=== PATIENT | female | born 1995 | race Two or more races ===

== ENCOUNTER 2017-10-08 11:52 | Emergency (ER) | payer SELFPAY ==
[~2017-10-08] VITALS: Ht 167.6 cm; Wt 55.8 kg
[2017-10-08] MEDS ORDERED: ONDANSETRON ODT 4 MG TAB PO ONE ×2 (12:15→12:30)
[2017-10-08 13:11] LABS: Basophils # (auto) 0.1 uL; Basophils % (auto) 0.4 % (0.0-2.0); Eosinophils # (auto) 0.2 uL; Eosinophils % (auto) 1.5 % (0.0-7.0); Hematocrit 43.1 % (36.0-46.0); Hemoglobin 14.4 g/dL (12.2-16.2); Lymphocytes # (auto) 1.4 uL; Lymphocytes % (auto) 9.5 % (10.0-50.0); Mean Corpuscular Hemoglobin 29.6 pg (28.0-32.0); Mean Corpuscular Hgb Conc. 33.3 g/dL (32.0-36.0); Mean Corpuscular Volume 88.8 fL (80.0-100.0); Monocytes # (auto) 0.5 uL; Monocytes % (auto) 3.6 % (0.0-12.0); Neutrophils # (auto) 12.5 uL; Platelet Count (auto) 262 10^3/uL (140-450); Red Blood Cells 4.86 10^6/uL (4.0-5.20); Red Cell Distribution Width 13.7 % (11.8-14.3); White Blood Cell 14.8 10^3/uL (4.4-10.8)
[2017-10-08 13:36] LABS: Alanine Aminotransferase 26 U/L (13-56); Albumin 3.8 g/dL (3.4-5.0); Alkaline Phosphatase 59 U/L (45-117); Amylase 65 U/L (25-115); Anion Gap 7 (5-15); Aspartate Aminotransferase 8 U/L (15-37); BUN/Creatinine Ratio 18.7; Bilirubin, Total 0.4 mg/dL (0.2-1.0); Blood Urea Nitrogen 14 mg/dL (7-18); Calcium 9.2 mg/dL (8.5-10.1); Carbon Dioxide 24 mmol/L (21-32); Chloride 109 mmol/L (98-107); GFR African American 125 mL/min; GFR Non-African American 104 mL/min; Glucose 90 mg/dL (74-106); Lipase 101 U/L (73-393); Potassium 4.3 mmol/L (3.5-5.1); Sodium 140 mmol/L (136-145); Total Protein 7.6 g/dL (6.4-8.2)
[2017-10-08 16:56] LABS: Urine Bacteria NONE SEEN /hpf (None Seen); Urine Blood 2+ /uL (Negative); Urine Mucus FEW (None Seen); Urine Specific Gravity 1.033 (1.001-1.035); Urine WBC 3 /hpf (0 - 5)
[2017-10-08] MEDS ORDERED: KETOROLAC TROMETH 30 MG/ML 1ML VIAL IV ONE (17:30)
[2017-10-08] MEDS ORDERED: PROMETHAZINE HCL 25 MG/ML 1ML IV PRN (17:30)
[2017-10-08 20:24] VITALS: BP 102/59
== END 2017-10-08 20:30 | disposition home or self-care (01) ==
LOC: EDBD 11:52 → ER 11:52
DX: R10.13 Epigastric pain (principal)
CPT/HCPCS: 36415; 74176; 80053; 81001; 82150; 83690; 84484; 85025; 93005; 96374; 96375; 99285; J1885; J2550; Q0162

== ENCOUNTER 2024-05-11 01:48 | Inpatient (IN) | payer MEDICAID ==
[~2024-05-11] VITALS: Ht 152.4 cm; Wt 67.2 kg
--- NOTE | 2024-05-11 02:12 | ED.PDOC ---
GI ASSESSMENT HPI Comments 28-year-old female who came to ER for abdominal pain. Patient states pain for the past 4 days. Abdominal pain described as epigastric, sharp, cramping, constant, nonradiating, associated with bouts of nausea, vomiting, and dry heaving. Unable to tolerate any oral intake. Denies any history of abdominal surgeries. Denies any possibility of . Chief Complaint: Abdominal pain Time Seen by MD: 02:11 Reviewed Notes: Nurses Notes Allergies: Coded Allergies: NO KNOWN ALLERGIES (Unverified , 10/08/17) Home Meds Active Scripts Loperamide Hcl (Imodium) 2 Mg Cp, 2 MG PO TID PRN for 7 Days, #20 CAP Prov:MAHSA CAMPBELL MD 05/11/24 Famotidine (PEPCID TABLET) 20 Mg Tb, 1 TAB PO BID PRN for 10 Days, #20 TAB 5 Refills Prov:MAHSA CAMPBELL MD 05/11/24 Ondansetron Odt 4MG Tab (ZOFRAN PO) 4 Mg Tb, 4 MG PO Q4HPRN PRN for 7 Days, #35 TAB ODT TAB-DISSOLVE IN MOUTH, THEN SWALLOW Prov:MAHSA CAMPBELL MD 05/11/24 Information Source: Patient Mode of Arrival: Ambulatory Timing: Days Duration: Intermittent Prehospital treatment: None Quality: Cramping, Sharp Vomitus: Watery Stool: Normal Severity: Moderate Recent: None Recent Hx of: None Pain Location: Epigastric Modifying Factors: Nothing Associated sign and symptoms: Nausea, Vomiting, Abdominal Pain Past Medical History PAST MEDICAL HISTORY: Kidney Stones Surgical History: Denies all surgeries RAD TECH History: No Pertinent RAD TECH History Family History Family History: Reviewed,noncontributory to illness Social History Smoker: Non-Smoker Alcohol: Denies ETOH Use Drugs: Denies Drug Use Lives In: Home Constitutional: denies: chills, diaphoresis, fatigue, fever, malaise, sweats, weakness, others EENTM: denies: blurred vision, double vision, ear bleeding, ear discharge, ear drainage, ear pain, ear ringing, eye pain, eye redness, hearing loss, mouth pain, mouth swelling, nasal discharge, nose bleeding, nose congestion, nose pain, photophobia, tearing, throat pain, throat swelling, voice changes, others Respiratory: denies: cough, hemoptysis, orthopnea, SOB at rest, shortness of breath, SOB with excertion, stridor, wheezing, others Cardiovascular: denies: chest pain, dizzy spells, diaphoresis, Dyspnea on exertion, edema, irregular heart beat, left arm pain, lightheadedness, pal pitations, PND, syncope, others Gastrointestinal: reports: abdominal pain, nausea, vomiting; denies: abdomen distended, blood streaked bowels, constipated, diarrhea, dysphagia, difficulty swallowing, hematemesis, melena, poor appetite, poor fluid intake, rectal bleeding, rectal pain, others Genitourinary: denies: abnormal vagina bleeding, burning, dyspareunia, dysuria, flank pain, frequency, hematuria, incontinence, pain, , vagina discharge, urgency, others Neurological: denies: dizziness, fainting, headache, left sided numbness, left sided weakness, numbness, paresthesia, pre-existing deficit, right sided numbness, right sided weakness, seizure, speech problems, tingling, tremors, weakness, others Musculoskeletal: denies: back pain, gout, joint pain, joint swelling, muscle pain, muscle stiffness, neck pain, others Integumetry: denies: bruises, change in color, change in hair/nails, dryness, laceration, lesions, lumps, rash, wounds, others Allergic/Immunocompromised: denies: Difficulty Healing, Frequent Infections, Hives, Itching, others Hematologic/Lymphatic: denies: anemia, blood clots, easy bleeding, easy bruising, swollen glands, others Endocrine: denies: excessive hunger, excessive sweating, excessive thirst, excessive urination, flushing, intolerance to cold, intolerance to heat, unexplained weight gain, unexplained weight loss, others Psychiatric: denies: anxiety, bipolar disorder, depression, hopeless, panic disorder, schizophrenia, sleepless, suicidal, others Physical Exam General Appearance: No Apparent Distress, Normal HEENT: Normal ENT Inspection, Pharynx Normal, TMs Normal Neck: Full Range of Motion, Non-Tender, Normal, Normal Inspection Respiratory: Chest Non-Tender, Lungs Clear, No Accessory Muscle Use, No Respiratory Distress, Normal Breath Sounds Cardiovascular: No Edema, No JVD, No Murmur, No Gallop, Normal Peripheral Pulses, Regular Rate/Rhythm Breast Exam: Deferred Gastrointestinal: No Organomegaly, Non Tender, No Pulsatile Mass, Normal Bowel Sounds, Soft Genitalia: Deferred Pelvic: Deferred Rectal: Deferred Extremities: No calf tenderness, Normal capillary refill, Normal inspection, Normal range of motion, Non-tender, No pedal edema Musculoskeletal : Apperance: Normal Neurologic: Alert, 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 Was a procedure done?: No GI differential Dx Differential Diagnosis: Cholecystitis, Diverticular disease, Gastritis/PUD, Gastroenteritis, Pancreatitis, UTI, Urolithiasis, Dehydration, Kidney Stone X-Ray, Labs, Meds, VS Vital Signs Date Time Temp Pulse Resp B/P (MAP) Pulse Ox O2 Delivery O2 Flow Rate FiO2 05/11/24 03:26 84 19 136/81 05/11/24 03:16 84 19 99 Room Air 05/11/24 03:16 84 19 136/81 (99) 99 05/11/24 02:00 97.1 61 18 125/73 (90) 97 Lab Test 05/11/24 02:23 05/11/24 02:17 Range/Units Urine Color Light-yellow Yellow Urine Clarity Clear Clear Urine pH 6.5 5.0-9.0 Urine Specific [place] 1.014 1.001-1.035 Urine Protein Negative Negative Urine Ketones Negative Negative Urine Blood Trace H Negative /uL Urine Nitrite Negative Negative Urine Bilirubin Negative Negative Urine Urobilinogen Normal Negative mg/dL Urine Leukocyte Esterase Negative Negative /uL Urine RBC 3 0 - 4 /hpf Urine WBC <1 0 - 5 /hpf Urine Squamous Epithelial Cells Few <5 /hpf Urine Bacteria None seen None Seen /hpf Urine Glucose Normal Normal mg/dL White Blood Count 11.1 H 4.4-10.8 10^3/uL Red Blood Count 4.70 4.0-5.20 10^6/uL Hemoglobin 14.0 12.2-16.2 g/dL Hematocrit 41.4 36.0-46.0 % Mean Corpuscular Volume 88.1 80.0-100.0 fL Mean Corpuscular Hemoglobin 29.8 28.0-32.0 pg Mean Corpuscular Hemoglobin Concent 33.8 32.0-36.0 g/dL Red Cell Distribution Width 13.3 11.8-14.3 % Platelet Count 265 140-450 10^3/uL Mean Platelet Volume 7.8 6.9-10.8 fL Neutrophils (%) (Auto) 62.8 37.0-80.0 % Lymphocytes (%) (Auto) 28.7 10.0-50.0 % Monocytes (%) (Auto) 4.9 0.0-12.0 % Eosinophils (%) (Auto) 3.2 0.0-7.0 % Basophils (%) (Auto) 0.4 0.0-2.0 % Neutrophils # (Auto) 7.0 1.6-8.6 10 ^3/uL Lymphocytes # (Auto) 3.2 0.4-5.4 10 ^3/uL Monocytes # (Auto) 0.5 0-1.3 10 ^3/uL Eosinophils # (Auto) 0.4 0-0.8 10 ^3/uL Basophils # (Auto) 0 0-0.2 10 ^3/uL Nucleated Red Blood Cells 0.1 % Sodium Level 141 136-145 mmol/L Potassium Level 3.6 3.5-5.1 mmol/L Chloride Level 107 98-107 mmol/L Carbon Dioxide Level 27 20-31 mmol/L Anion Gap 7 5-15 Blood Urea Nitrogen 9 9-23 mg/dL Creatinine 0.65 0.550-1.02 mg/dL Glomerular Filtration Rate Calc 124 >90 mL/min BUN/Creatinine Ratio 13.8 10.0-20.0 Serum Glucose 100 74-106 mg/dL Calcium Level 10.4 8.7-10.4 mg/dL Total Bilirubin 0.6 0.2-1.0 mg/dL Aspartate Amino Transferase (AST) < 8 L 13-40 U/L Alanine Aminotransferase (ALT) 24 7-40 U/L Alkaline Phosphatase 68 46-116 U/L Total Protein 7.3 5.7-8.2 g/dL Albumin 4.6 3.2-4.8 g/dL Lipase 49 12-53 U/L Current Medications Medications (Trade) Dose Ordered Sig/Mata Route Start Time Stop Time Status Last Admin Ondansetron HCl (Zofran) 4 mg ONCE ONCE IV 05/11/24 02:15 05/11/24 02:16 DC 11/22/24 03:25 Sodium Chloride 1,000 ml @ 1,000 mls/hr Q1H ONCE IVB 05/11/24 02:15 05/11/24 03:14 DC 05/11/24 03:24 Morphine Sulfate 4 mg ONCE ONCE IV 05/11/24 02:15 05/11/24 02:16 DC 05/11/24 03:26 PROCEDURE(s): ABPLIV - CT AB PEL WITH IV CON ONLY FINDINGS: Lung Bases: Bibasilar atelectasis. No acute or significant lung base finding. Normal heart size. No pleural or pericardial effusion. Liver: The liver is normal in size. No focal lesions. Normal hepatic vascular enhancement. Gallbladder and Biliary Tree: Gallstones. No biliary ductal dilatation. Spleen: Enlarged measuring 14.1 cm. Pancreas: The pancreas is normal in appearance without focal lesions or abnormal enhancement. Adrenal Glands: Unremarkable Kidneys: Kidneys demonstrate normal symmetric enhancement without focal lesions, calculi or hydronephrosis. Bladder: Unremarkable Bowel: The stomach is grossly normal in appearance. Fluid-filled small bowel loops with mild wall thickening of a bowel loop in the left quadrant. No transition point. The colon is unremarkable. Normal appendix. Intra abdominal cavity: No pneumoperitoneum. No ascites. Lymphadenopathy: No mesenteric, retroperitoneal or periportal lymphadenopathy. Abdominal Wall and Mesentery: Unremarkable. Vasculature: The visualized abdominal aorta is normal in size and caliber. Abdominal and pelvic vessels demonstrate normal enhancement. Pelvic Organs: Dominant left adnexal follicle. Uterus is unremarkable. Musculoskeletal: No aggressive focal bony lesions, acute fractures or dislocation. Soft tissues: Unremarkable. IMPRESSION: 1. Acute enteritis. No small bowel obstruction. 2. Cholelithiasis. Time of 1ST Reevaluation: 02:09 Reevaluation 1ST: Unchanged Time of 2ND Reevaluation: 05:07 Reevaluation 2ND: Unchanged Patient Education/Counseling: Diagnosis, Treatment Family Education/Counseling: No Family Present Departure 1 Departure Time of Disposition: 05:15 (Pain and nausea persist on reeval, I discussed the case with Dr Selvin Verdugo, Gen Surgery who will evaluate the patient for admission) Impression: Primary Impression: Abdominal pain Additional Impression: Cholecystitis Disposition: ADMITTED INPATIENT Admit to: Med Surg Condition: Guarded e-Prescriptions Loperamide Hcl (Imodium) 2 Mg Cp 2 MG PO TID PRN for 7 Days, #20 CAP Prov: MAHSA CAMPBELL MD 05/11/24 Famotidine (PEPCID TABLET) 20 Mg Tb 1 TAB PO BID PRN for 10 Days, #20 TAB 5 Refills Prov: MAHSA CAMPBELL MD 05/11/24 Ondansetron Odt 4MG Tab (ZOFRAN PO) 4 Mg Tb 4 MG PO Q4HPRN PRN for 7 Days, #35 TAB ODT TAB-DISSOLVE IN MOUTH, THEN SWALLOW Prov: MAHSA CAMPBELL MD 05/11/24 Critical Care Note Critical Care Time?: No Stability Stability form required: No Heart Score Heart Score: Heart Score Response (Comments) Value History N/A 0 EKG N/A 0 Age N/A 0 Risk Factors N/A 0 Troponin N/A 0 Total 0 I personally scribed for MAHSA CAMPBELL MD ([email or web address]) on 05/11/24 at 02:12. Electronically submitted by Brad Pulido ([email or web address]). I personally scribed for MAHSA CAMPBELL MD ([email or web address]) on 05/11/24 at 04:25. Electronically submitted by Brad Pulido ([email or web address]). I personally scribed for MAHSA CAMPBELL MD ([email or web address]) on 05/11/24 at 04:32. Electronically submitted by Brad Pulido ([email or web address]). MAHSA CAMPBELL MD May 11, 2024 02:12
[2024-05-11 02:24] LABS: Urine Bacteria None Seen /hpf (None Seen)
[2024-05-11 02:56] LABS: Basophils # (auto) 0 10 ^3/uL (0-0.2); Basophils % (auto) 0.4 % (0.0-2.0); Eosinophils # (auto) 0.4 10 ^3/uL (0-0.8); Eosinophils % (auto) 3.2 % (0.0-7.0); Hematocrit 41.4 % (36.0-46.0); Lymphocytes # (auto) 3.2 10 ^3/uL (0.4-5.4); Lymphocytes % (auto) 28.7 % (10.0-50.0); Mean Corpuscular Hemoglobin 29.8 pg (28.0-32.0); Mean Corpuscular Hgb Conc. 33.8 g/dL (32.0-36.0); Mean Corpuscular Volume 88.1 fL (80.0-100.0); Monocytes # (auto) 0.5 10 ^3/uL (0-1.3); Monocytes % (auto) 4.9 % (0.0-12.0); Neutrophils % (auto) 62.8 % (37.0-80.0); Nucleated Red Blood Cells % 0.1 %; Platelet Count (auto) 265 10^3/uL (140-450); Red Cell Distribution Width 13.3 % (11.8-14.3); White Blood Cell 11.1 10^3/uL (4.4-10.8)
[2024-05-11 03:00] LABS: Urine Blood TRACE /uL (Negative); Urine Clarity Clear (Clear); Urine Color Light-Yellow (Yellow); Urine Protein, UAD Negative (Negative); Urine Specific Gravity 1.014 (1.001-1.035); Urine Urobilinogen Normal (Negative); Urine WBC <1 /hpf (0 - 5); Urine pH 6.5 (5.0-9.0)
[2024-05-11 03:04] LABS: Alanine Aminotransferase 24 U/L (7-40); Albumin 4.6 g/dL (3.2-4.8); Alkaline Phosphatase 68 U/L (46-116); Anion Gap 7 (5-15); Aspartate Aminotransferase < 8 U/L (13-40); BUN/Creatinine Ratio 13.8 (10.0-20.0); Bilirubin, Total 0.6 mg/dL (0.2-1.0); Blood Urea Nitrogen 9 mg/dL (9-23); Calcium 10.4 mg/dL (8.7-10.4); Carbon Dioxide 27 mmol/L (20-31); Chloride 107 mmol/L (98-107); Glucose 100 mg/dL (74-106); Lipase 49 U/L (12-53); Potassium 3.6 mmol/L (3.5-5.1); Sodium 141 mmol/L (136-145); Total Protein 7.3 g/dL (5.7-8.2)
[2024-05-11] MEDS ORDERED: IOHEXOL 300 MG/ML 100ML BOTTLE IJ ONE (03:13)
[2024-05-11] MEDS: SODIUM CHLORIDE 0.9% 1,000 ML IVB ONE (03:24)
[2024-05-11] MEDS: ONDANSETRON HCL 4 MG/2 ML VIAL IV ONE ×2 (03:25→04:30)
[2024-05-11] MEDS: MORPHINE SULFATE 4 MG/ML SYR/VIAL IV ONE ×2 (03:26→04:30)
--- NOTE | 2024-05-11 04:09 | DVH ---
Exam: CT CT AB PEL WITH IV CON ONLY History: severe upper abd pain, vomiting Comparison Study: None available at time of dictation. Contrast: Type of contrast: Omnipaque 300 Contrast injected: 100 mL Contrast wasted: 0 TECHNIQUE: A digital rivet heater image was obtained. During the uneventful, intravenous administration of c ontrast material, multislice data acquisition was obtained through the abdomen and pelvis. The data s et was subsequently reconstructed into axial images. Images were reviewed on a work station using a c ombination of axial and multiplanar using a variety of window levels and settings. Radiation Dose Information: CT Dose: CTDI volume is 6.5 mGy. Dose-length product is 370.1 mGy*cm FINDINGS: Lung Bases: Bibasilar atelectasis. No acute or significant lung base finding. Normal heart size. No pleural or pericardial effusion. Liver: The liver is normal in size. No focal lesions. Normal hepatic vascular enhancement. Gallbladder and Biliary Tree: Gallstones. No biliary ductal dilatation. Spleen: Enlarged measuring 14.1 cm. Pancreas: The pancreas is normal in appearance without focal lesions or abnormal enhancement. Adrenal Glands: Unremarkable Kidneys: Kidneys demonstrate normal symmetric enhancement without focal lesions, calculi or hydroneph rosis. Bladder: Unremarkable Bowel: The stomach is grossly normal in appearance. Fluid-filled small bowel loops with mild wall thi ckening of a bowel loop in the left quadrant. No transition point. The colon is unremarkable. Normal appendix. Intra abdominal cavity: No pneumoperitoneum. No ascites. Lymphadenopathy: No mesenteric, retroperitoneal or periportal lymphadenopathy. Abdominal Wall and Mesentery: Unremarkable. Vasculature: The visualized abdominal aorta is normal in size and caliber. Abdominal and pelvic vess els demonstrate normal enhancement. Pelvic Organs: Dominant left adnexal follicle. Uterus is unremarkable. Musculoskeletal: No aggressive focal bony lesions, acute fractures or dislocation. Soft tissues: Unremarkable. IMPRESSION: 1. Acute enteritis. No small bowel obstruction. 2. Cholelithiasis. All CT scans at this medical facility are performed using dose modulation techniques as appropriate t o a performed exam including the following: Automated exposure control was utilized; adjustment of th e MA and/or KV according to patient size; and use of iterative reconstruction technique.
[2024-05-11] MEDS ORDERED: ZOFR4T PO (04:23)
[2024-05-11] MEDS ORDERED: FAMO20TA10 PO (04:24)
[2024-05-11] MEDS ORDERED: LOPE2CAP16 PO (04:25)
[2024-05-11] MEDS ORDERED: HYDROcodone-ACET 5/325MG TAB PO PRN (06:15)
[2024-05-11] MEDS ORDERED: ACETAMINOPHEN 325 MG TAB PO PRN (06:15)
--- NOTE | 2024-05-11 06:29 | DVHHP2 ---
History of Present Illness Reason for Visit: Acute abdominal pain History of Present Illness The patient is a 28-year-old female with past medical history of kidney stones who presented to [facility] ED with complaint of acute abdominal pain for approximately 4 days duration. Patient reports symptoms progressively g et worse with epigastric abdominal pain, described as sharp, cramping, constant, nonradiating, associated bout of nausea, vomiting, getting worse today that prompted this visit. Patient was seen and evaluated in the ED, laboratory data shows WBC 11.1, platelets 265, sodium 141, potassium 3.6, BUN 9, creatinine 0.65, glucose 100, lipase 49. Abdomen/pelvis CT revealing acute enteritis, cholelithiasis, no small bowel obstruction. Patient was given IV morphine sulfate 4 mg x 1, IV Zofran, please see medication orders section in the computer. On my assessment, patient denied chest pain, no headache, no dizziness, no diaphoresis, no shortness of breath, no nausea or vomiting at this moment, no fever, no chills. Patient was admitted for further evaluation and medical management. Past Medical History Kidney Stones Past Surgical History Denies all surgeries Family History Reviewed, noncontributory to the management of this case. Past Social History The patient lives at home, denies smoking, alcohol or illicit drugs abuse. Review of Systems Constitutional: No: Fever, Chills, Sweats, Weakness, Malaise, Other Eyes: No: Pain, Vision change, Conjunctivae inflammation, Eyelid inflammation, Other, Redness ENT: No: Ear pain, Ear discharge, Nose pain, Nose discharge, Nose congestion, Mouth pain, Mouth swelling, Throat pain, Throat swelling, Other Respiratory: No: Cough, Dry, Shortness of breath, SOB with excertion, Wheezing, Hemoptysis, Pleuritic Pain, Sputum, Wheezing, Other Cardiovascular: No: Chest Pain, Palpitations, Orthopnea, Paroxysmal Noc. Dyspnea, Edema, Lt Headedness, Other Gastrointestinal: Nausea, Vomiting, Abdominal Pain; No: Diarrhea, Constipation, Melena, Hematochezia, Other Genitourinary: No Dysuria, No Frequency, No Incontinence, No Hematuria, No Retention, No Other Musculoskeletal: No: other, neck pain, shoulder pain, arm pain, back pain, hand pain, leg pain, foot pain Skin: No: Rash, Lesions, Jaundice, Bruising, Other Neurological: No: Weakness, Numbness, Incoordination, Change in speech, Confusion, Seizures, Other Allergies: Coded Allergies: NO KNOWN ALLERGIES (Unverified , 10/08/17) Medications Current Medications Medications Dose Ordered Sig/Mata Route Start Time Stop Time Status Last Admin Dose Admin Metronidazole 100 ml @ 100 mls/hr Q8HR IV 05/11/24 14:00 Pantoprazole Sodium 40 mg DAILY IV 05/11/24 10:00 Acetaminophen/ Hydrocodone Bitart 1 tab Q4HP PRN PO 05/11/24 06:15 Ondansetron HCl 4 mg Q4HP PRN IV 05/11/24 06:15 Acetaminophen 650 mg Q6HP PRN PO 05/11/24 06:15 Morphine Sulfate 2 mg Q4HPRN PRN IV 05/11/24 06:15 Exam Vital Signs Vital Signs Date Time Temp Pulse Resp B/P (MAP) Pulse Ox O2 Delivery O2 Flow Rate FiO2 05/11/24 05:30 74 16 124/80 (95) 97 05/11/24 03:16 Room Air 05/11/24 02:00 97.1 General Appearance: Alert, Oriented X3, Cooperative, No acute distress HEENT: Atraumatic, PERRLA, EOMI, Mucous membr. moist/pink Respiratory: Clear to auscultation, Normal air movement Cardiovascular: Regular rate, Normal S1, Normal S2, No murmurs Abdominal: Normal bowel sounds, Soft, No hepatospenomegaly, No masses, Other (Reports tenderness) Extremities: No clubbing, No cyanosis, No edema, Normal pulses, No tenderness/swelling Skin: No rashes, No breakdown, No significant lesion Neuro: Normal gait, Normal speech, Strength at 5/5 X4 ext, Normal tone, Sensation intact, Cranial nerves 3-12 NL, Reflexes 2+ Psych/Mental Status: Mental status NL, Mood NL Labs/Xrays Labs Test 05/11/24 02:23 05/11/24 02:17 Range/Units Urine Color Light-yellow Yellow Urine Clarity Clear Clear Urine pH 6.5 5.0-9.0 Urine Specific [place] 1.014 1.001-1.035 Urine Protein Negative Negative Urine Ketones Negative Negative Urine Blood Trace H Negative /uL Urine Nitrite Negative Negative Urine Bilirubin Negative Negative Urine Urobilinogen Normal Negative mg/dL Urine Leukocyte Esterase Negative Negative /uL Urine RBC 3 0 - 4 /hpf Urine WBC <1 0 - 5 /hpf Urine Squamous Epithelial Cells Few <5 /hpf Urine Bacteria None seen None Seen /hpf Urine Glucose Normal Normal mg/dL White Blood Count 11.1 H 4.4-10.8 10^3/uL Red Blood Count 4.70 4.0-5.20 10^6/uL Hemoglobin 14.0 12.2-16.2 g/dL Hematocrit 41.4 36.0-46.0 % Mean Corpuscular Volume 88.1 80.0-100.0 fL Mean Corpuscular Hemoglobin 29.8 28.0-32.0 pg Mean Corpuscular Hemoglobin Concent 33.8 32.0-36.0 g/dL Red Cell Distribution Width 13.3 11.8-14.3 % Platelet Count 265 140-450 10^3/uL Mean Platelet Volume 7.8 6.9-10.8 fL Neutrophils (%) (Auto) 62.8 37.0-80.0 % Lymphocytes (%) (Auto) 28.7 10.0-50.0 % Monocytes (%) (Auto) 4.9 0.0-12.0 % Eosinophils (%) (Auto) 3.2 0.0-7.0 % Basophils (%) (Auto) 0.4 0.0-2.0 % Neutrophils # (Auto) 7.0 1.6-8.6 10 ^3/uL Lymphocytes # (Auto) 3.2 0.4-5.4 10 ^3/uL Monocytes # (Auto) 0.5 0-1.3 10 ^3/uL Eosinophils # (Auto) 0.4 0-0.8 10 ^3/uL Basophils # (Auto) 0 0-0.2 10 ^3/uL Nucleated Red Blood Cells 0.1 % Sodium Level 141 136-145 mmol/L Potassium Level 3.6 3.5-5.1 mmol/L Chloride Level 107 98-107 mmol/L Carbon Dioxide Level 27 20-31 mmol/L Anion Gap 7 5-15 Blood Urea Nitrogen 9 9-23 mg/dL Creatinine 0.65 0.550-1.02 mg/dL Glomerular Filtration Rate Calc 124 >90 mL/min BUN/Creatinine Ratio 13.8 10.0-20.0 Serum Glucose 100 74-106 mg/dL Calcium Level 10.4 8.7-10.4 mg/dL Total Bilirubin 0.6 0.2-1.0 mg/dL Aspartate Amino Transferase (AST) < 8 L 13-40 U/L Alanine Aminotransferase (ALT) 24 7-40 U/L Alkaline Phosphatase 68 46-116 U/L Total Protein 7.3 5.7-8.2 g/dL Albumin 4.6 3.2-4.8 g/dL Lipase 49 12-53 U/L PATIENT: DONATO CALHOUNACCT: [id number] UNIT: [id number] 1 : 1995 LOC: ER ROOM / BED: / AGE / SEX: 28 / F ADM STATUS: REG ER SERVICE [id number] ORDERING PHYSICIAN: MAHSA CAMPBELL MD PROCEDURE(s): ABPLIV - CT AB PEL WITH IV CON ONLY REASON: severe upper abd pain, vomiting ORDER NUMBER(s): [id number], ACCESSION NUMBER(s): [id number] Exam: CT CT AB PEL WITH IV CON ONLY History: severe upper abd pain, vomiting Comparison Study: None available at time of dictation. Contrast: Type of contrast: Omnipaque 300 Contrast injected: 100 mL Contrast wasted: 0 TECHNIQUE: A digital foundry worker image was obtained. During the uneventful, intravenous administration of contrast material, multislice data acquisition was obtained through the abdomen and pelvis. The data set was subsequently reconstructed into axial images. Images were reviewed on a work station using a combination of axial and multiplanar using a variety of window levels and settings. Radiation Dose Information: CT Dose: CTDI volume is 6.5 mGy. Dose-length product is 370.1 mGy*cm FINDINGS: Lung Bases: Bibasilar atelectasis. No acute or significant lung base finding. Normal heart size. No pleural or pericardial effusion. Liver: The liver is normal in size. No focal lesions. Normal hepatic vascular enhancement. Gallbladder and Biliary Tree: Gallstones. No biliary ductal dilatation. Spleen: Enlarged measuring 14.1 cm. Pancreas: The pancreas is normal in appearance without focal lesions or abnormal enhancement. Adrenal Glands: Unremarkable Kidneys: Kidneys demonstrate normal symmetric enhancement without focal lesions, calculi or hydronephrosis. Bladder: Unremarkable Bowel: The stomach is grossly normal in appearance. Fluid-filled small bowel loops with mild wall thickening of a bowel loop in the left quadrant. No transition point. The colon is unremarkable. Normal appendix. Intra abdominal cavity: No pneumoperitoneum. No ascites. Lymphadenopathy: No mesenteric, retroperitoneal or periportal lymphadenopathy. Abdominal Wall and Mesentery: Unremarkable. Vasculature: The visualized abdominal aorta is normal in size and caliber. Abdominal and pelvic vessels demonstrate normal enhancement. Pelvic Organs: Dominant left adnexal follicle. Uterus is unremarkable. Musculoskeletal: No aggressive focal bony lesions, acute fractures or dislocation. Soft tissues: Unremarkable. IMPRESSION: 1. Acute enteritis. No small bowel obstruction. 2. Cholelithiasis. Assessment/Plan Assessment/Plan Acute abdominal pain Cholelithiasis Enteritis Nausea and vomiting Leukocytosis, unspecified Plan 1. Admit to med surge unit 2. Breathing treatment 3. Pain control management 4. IV antibiotic management 5. Management of fluids and electrolytes 6. Consultation for surgical team 7. Diagnostic test abdomen/pelvis CT 8. DVT prophylaxis-on SCDs 9. Repeat labs CBC, CMP in a.m. 10. Continue with current medical management 11. Treatment plan discussed with patient and RN. Patient verbalized understanding. Plan discussed with: Patient, Other (RN) My Orders Orders - SHELLEY PALUMBO DNP Procedure Category Date Status Time Complete Blood Count LAB 05/11/24 Logged 06:13 Comprehensive LAB 05/11/24 Logged Metabolic Panel 06:13 Metronidazole PHA 05/11/24 In Process 500mg/100ml (Flagyl 14:00 Metronidazole PHA 05/11/24 In Process 500mg/100ml (Flagyl 06:15 Pantoprazole PHA 05/11/24 In Process (Protonix) 10:00 Allergies EDYTA 05/11/24 In Process 06:13 Code Status CODE 05/11/24 Transmitted 06:13 Oxygen Per Hour RT 05/11/24 Transmitted 06:13 Hydrocodone-Acet PHA 05/11/24 In Process 5/325mg Tab ([place] 06:15 Ondansetron Hcl PHA 05/11/24 In Process (Zofran) 06:15 Complete Blood Count LAB 05/12/24 Verified 04:00 Comprehensive LAB 05/12/24 Verified Metabolic Panel 04:00 Condition: Serious EDYTA 05/11/24 In Process 06:13 Acetaminophen Tablet PHA 05/11/24 In Process (Tylenol Tablet) 06:15 Clear Liq Diet DIET 05/11/24 Transmitted Breakfast Bedrest With Bathroom EDYTA 05/11/24 In Process Privileg 06:13 Morphine Sulfate PHA 05/11/24 In Process Injection 06:15 Sequential EDYTA 05/11/24 In Process Compression Device Problem List: (1) Acute abdominal pain (2) Cholelithiasis (3) Enteritis (4) Nausea and vomiting (5) Leukocytosis, unspecified Date of Service: May 11, 2024 Billing Provider: SHELLEY PALUMBO DNP Common Visit Codes: [id number] INP/OBS CARE (HIGH) SHELLEY PALUMBO DNP May 11, 2024 06:29
[2024-05-11] MEDS ORDERED: MORPHINE SULFATE INJ 2 MG/ml SYRG IV PRN ×2 (06:30→08:30)
[2024-05-11] MEDS ORDERED: NITROGLYCERIN 0.4 MG SL TAB SL PRN (06:30)
[2024-05-11 06:37] LABS: Basophils # (auto) 0 10 ^3/uL (0-0.2); Basophils % (auto) 0.2 % (0.0-2.0); Eosinophils # (auto) 0 10 ^3/uL (0-0.8); Eosinophils % (auto) 0.1 % (0.0-7.0); Hematocrit 40.7 % (36.0-46.0); Hemoglobin 13.8 g/dL (12.2-16.2); Lymphocytes # (auto) 0.9 10 ^3/uL (0.4-5.4); Lymphocytes % (auto) 5.9 % (10.0-50.0); Mean Corpuscular Hgb Conc. 33.8 g/dL (32.0-36.0); Mean Corpuscular Volume 88.7 fL (80.0-100.0); Monocytes # (auto) 0.3 10 ^3/uL (0-1.3); Neutrophils # (auto) 13.7 10 ^3/uL (1.6-8.6); Neutrophils % (auto) 91.8 % (37.0-80.0); Platelet Count (auto) 228 10^3/uL (140-450); Red Blood Cells 4.59 10^6/uL (4.0-5.20); Red Cell Distribution Width 13.2 % (11.8-14.3); White Blood Cell 14.9 10^3/uL (4.4-10.8)
[2024-05-11] MEDS: metroNIDAZOLE 500MG/100ML 100 ML IV ONE (06:44)
[2024-05-11 06:58] LABS: Alanine Aminotransferase 24 U/L (7-40); Alkaline Phosphatase 61 U/L (46-116); Anion Gap 6 (5-15); Aspartate Aminotransferase < 8 U/L (13-40); BUN/Creatinine Ratio 13.6 (10.0-20.0); Blood Urea Nitrogen 8 mg/dL (9-23); Calcium 9.7 mg/dL (8.7-10.4); Carbon Dioxide 25 mmol/L (20-31); Chloride 109 mmol/L (98-107); Glucose 120 mg/dL (74-106); Potassium 3.8 mmol/L (3.5-5.1); Sodium 140 mmol/L (136-145)
[2024-05-11 06:59] LABS: Albumin 4.5 g/dL (3.2-4.8); Bilirubin, Total 0.6 mg/dL (0.2-1.0); Total Protein 7.1 g/dL (5.7-8.2)
[2024-05-11 07:04] VITALS: PULSE 87; RESP 14; O2SAT 97
[2024-05-11] MEDS: ONDANSETRON HCL 4 MG/2 ML VIAL IV PRN (08:10)
[2024-05-11] MEDS: MORPHINE SULFATE INJ 2 MG/ml SYRG IV PRN (08:11)
[2024-05-11] MEDS ORDERED: HYDROcodone-ACET 10/325MG TAB PO PRN (08:30)
[2024-05-11] MEDS: PIPERACILLIN-TAZOB 3.375GM 100 ML IV ONE (08:37)
[2024-05-11] MEDS ORDERED: PANTOPRAZOLE 40 MG/10 ML VIAL INJ IV SCH (10:00)
[2024-05-11] MEDS: PANTOPRAZOLE 40 MG/10 ML VIAL INJ IV SCH (10:04)
[2024-05-11] MEDS: ENOXAPARIN SOD 40 MG/0.4 ML SYRINGE SC SCH (10:05)
[2024-05-11 12:45] VITALS: BP 91/50; PULSE 78; RESP 16; TEMP 98.1; O2SAT 97
[2024-05-11] MEDS: cefTRIAXone 1GM/50ML D5W 50 ML IV ONE (13:14)
[2024-05-11] MEDS ORDERED: PROCHLORPERAZINE EDISYLATE 5 MG/ML 2ML VIAL IV PRN (13:45)
[2024-05-11] MEDS: D5W/SOD CHL 0.45% 1,000 ML IV SCH (13:45)
[2024-05-11] MEDS ORDERED: metroNIDAZOLE 500MG/100ML 100 ML IV SCH (14:00)
[2024-05-11] MEDS ORDERED: PIPERACILLIN-TAZOB 3.375GM 100 ML IV SCH (14:00)
[2024-05-11] MEDS: metroNIDAZOLE 500MG/100ML 100 ML IV SCH (14:00)
[2024-05-11 17:14] VITALS: BP 99/61; PULSE 90; RESP 16; TEMP 98.1; O2SAT 96
[2024-05-11] MEDS: ONDANSETRON HCL 4 MG/2 ML VIAL IV SCH (17:48)
--- NOTE | 2024-05-11 19:19 | DVHPN2 ---
Subjective 05/11 - still feeling nausea, npo d/t that nausea. unable rhianna po. CT w colitis. no diarrhea to have source. will give abx ctx/flagyl, npo, ivf, mata zofran. Reviewed: H&P Changes from previous H/P or p: No Changes General: Per HPI Objective Vitals Vital Signs Date Time Temp Pulse Resp B/P (MAP) Pulse Ox O2 Delivery O2 Flow Rate FiO2 05/11/24 17:30 Room Air* 0 21 05/11/24 17:14 98.1 90 16 99/61 (74) 96 98.1 Intake/Output Intake and Output 05/11/24 07:00 Intake Total 1000 ml Balance 1000 ml IV Total 1000 ml Exam GEN: Healthy appearing, well-developed, in mild distress HEENT: NC/AT; mucous membranes dry CV: RRR, no m/r/g. LUNGS: CTAB, no w/r/c. ABD: Soft, NT/ND, NBS, no masses or organomegaly. Epigastric tender to palpation, right lower quadrant tender to palpation EXT: skin Warm, well perfused. no rashes. No clubbing, cyanosis, or edema. NEURO: Ambulating with no limitations. No focal deficits. Medications Current Medications Medications Dose Ordered Sig/Mata Route Start Time Stop Time Status Last Admin Dose Admin Acetaminophen/ Hydrocodone Bitart 1 tab Q4HP PRN PO 05/11/24 06:15 Acetaminophen 650 mg Q6HP PRN PO 05/11/24 06:15 Nitroglycerin 0.4 mg Q5MINP PRN SL 05/11/24 06:30 Morphine Sulfate 2 mg Q30M PRN IV 05/11/24 06:30 Morphine Sulfate 2 mg Q2HP PRN IV 05/11/24 08:30 Pantoprazole Sodium 40 mg BID IV 05/11/24 10:00 05/11/24 10:04 40 MG Acetaminophen/ Hydrocodone Bitart 1 tab Q4HP PRN PO 05/11/24 08:30 Enoxaparin Sodium 40 mg DAILY SC 05/11/24 10:00 05/11/24 10:16 40 MG Ceftriaxone Sodium 50 ml @ 100 mls/hr DAILY@09 IV 05/12/24 09:00 Metronidazole 100 ml @ 100 mls/hr Q8HR IV 05/11/24 14:00 05/11/24 14:00 100 MLS/HR Dextrose/Sodium Chloride 1,000 ml @ 125 mls/hr Q8H IV 05/11/24 13:45 05/12/24 02:00 05/11/24 13:45 125 MLS/HR Ondansetron HCl 4 mg Q6HR IV 05/11/24 18:00 05/11/24 17:48 4 MG Prochlorperazine Edisylate 5 mg Q4HPRN PRN IV 05/11/24 13:45 Laboratory Results Laboratory Tests 05/11/24 06:25 Chemistry Test 05/11/24 02:17 05/11/24 06:25 Albumin 4.6 g/dL (3.2-4.8) 4.5 g/dL (3.2-4.8) Calcium Level 10.4 mg/dL (8.7-10.4) 9.7 mg/dL (8.7-10.4) Total Protein 7.3 g/dL (5.7-8.2) 7.1 g/dL (5.7-8.2) Lipid panel Test 05/11/24 02:17 Lipase 49 U/L (12-53) LFT Test 05/11/24 02:17 05/11/24 06:25 Alanine Aminotransferase (ALT) 24 U/L (7-40) 24 U/L (7-40) Alkaline Phosphatase 68 U/L (46-116) 61 U/L (46-116) Aspartate Amino Transferase (AST) < 8 U/L (13-40) L < 8 U/L (13-40) L Total Bilirubin 0.6 mg/dL (0.2-1.0) 0.6 mg/dL (0.2-1.0) Urinalysis Test 05/11/24 02:23 Urine Color Light-yellow (Yellow) Urine Clarity Clear (Clear) Urine pH 6.5 (5.0-9.0) Urine Specific [place] 1.014 (1.001-1.035) Urine Protein Negative (Negative) Urine Ketones Negative (Negative) Urine Blood Trace /uL (Negative) H Urine Nitrite Negative (Negative) Urine Bilirubin Negative (Negative) Urine Urobilinogen Normal mg/dL (Negative) Urine Leukocyte Esterase Negative /uL (Negative) Urine RBC 3 /hpf (0 - 4) Urine WBC <1 /hpf (0 - 5) Urine Squamous Epithelial Cells Few /hpf (<5) Urine Bacteria None seen /hpf (None Seen) Urine Glucose Normal mg/dL (Normal) Labs and/or images reviewed: Labs reviewed by me, Image(s) reviewed by me Assessment/Plan Assessment/Plan 05/11 - still feeling nausea, npo d/t that nausea. unable rhianna po. CT w colitis. no diarrhea to have source. will give abx ctx/flagyl, npo, ivf, mata zofran. enteritis cholelithiasis Epigastric pain Intractable abdominal pain intractable nausea and vomiting P.o. intolerance - Pain does radiate from epigastrium to right lower quadrant, but CT negative for appendicitis. We will keep low threshold to repeat CT if pain worsens - CT with colitis - epigastrium tenderness, right lower quadrant tenderness abx ctx/flagyl, npo, ivf, mata zofran. surgery following keep med/surg. diet npo , dvt ppx pt OOB, gi ppx with pepcid iv bid Plan discussed with: Patient My Orders Orders - MICHELLE VILLATORO MD Procedure Category Date Status Time Ceftriaxone 1gm/50ml PHA 05/12/24 In Process D5w (Rocephin) 09:00 Metronidazole PHA 05/11/24 In Process 500mg/100ml (Flagyl 14:00 D5w/Sod Chl 0.45% PHA 05/11/24 In Process (D5w 1/2ns) 13:45 Ondansetron Hcl PHA 05/11/24 In Process (Zofran) 18:00 Prochlorperazine Inj PHA 05/11/24 In Process (Compazine Inj) 13:45 * Dietary Consult CONS 05/11/24 Transmitted 18:39 Influenza Trivalent PHA 05/11/24 Logged [id number] (Flulaval 18:45 Date of Service: May 11, 2024 Billing Provider: MICHELLE VILLATORO MD Common Visit Codes: [id number] INP/OBS CARE(HIGH) MICHELLE VILLATORO MD May 11, 2024 19:19
[2024-05-11 20:00] VITALS: RESP 18; O2SAT 97
[2024-05-11 21:00] VITALS: BP 94/55; PULSE 74; RESP 19; TEMP 98.2; O2SAT 97
--- NOTE | 2024-05-11 21:03 | DVHINCON2 ---
DATE OF CONSULTATION: 05/11/2024 REQUESTING PROVIDER: Diego Garg DNP CONSULTING PHYSICIAN: Selvin Verdugo MD REASON FOR CONSULTATION: Cholelithiasis, abdominal pain. HISTORY OF PRESENT ILLNESS: The patient is a 28-year-old female who has been experiencing epigastric abdominal pain since Tuesday. The pain subsided over the next several days. On Tuesday, she felt better; however, on , the pain recurred and worsened with associated nausea and vomiting. She describes her emesis as light greenish fluid. These episodes of pain occurred ____ at night. She took 4 pills of ibuprofen, unknown strength, on Tuesday as well as on Tuesday. Denies taking NSAIDs or any other medications on a regular basis. Currently, she feels slightly better, but still complains of epigastric pain. She denied fevers, chills, icteric sclerae, jaundice ____ nausea, vomiting, hemoptysis, hematemesis, bilious emesis, chest pain, shortness of breath, unintentional weight loss, night sweats, dysuria, choluria, hematuria, acholic stools, melena or hematochezia. PAST MEDICAL HISTORY: Denies. PAST SURGICAL HISTORY: Denies. MEDICATIONS: Ibuprofen p.r.n. as stated above. ALLERGIES: No known drug allergies. SOCIAL HISTORY: Denies smoking cigarettes, alcohol or drug use. FAMILY HISTORY: Noncontributory. REVIEW OF SYSTEMS: NEUROLOGIC: Negative. PSYCHIATRIC: Negative. ENDOCRINE: Negative. ENT: Negative. CARDIOVASCULAR: Negative. PULMONARY: Negative. GASTROINTESTINAL: As above. GENITOURINARY: Negative. HEMATOLOGIC/INFECTIOUS DISEASE: Negative. LYMPHATICS: Negative. MUSCULOSKELETAL: Negative. SKIN: Negative. PHYSICAL EXAMINATION: GENERAL: She is lying comfortably on a stretcher in ED16. She is calm, pleasant and in no distress. Anicteric sclerae. No evidence of jaundice. NEUROLOGIC: Grossly intact, alert, awake, oriented x3. HEAD, EYES, EARS, NOSE, AND THROAT: Normocephalic. Pupils equally round. Extraocular muscles intact. Trachea is midline. HEART: Normal heart rate and normotensive. LUNGS: Effortless breathing. Normal oxygen saturation and respiratory rate. ABDOMEN: Soft, nondistended with mild epigastric and right upper quadrant tenderness. No peritoneal signs or rebound. Morse negative. EXTREMITIES: No edema or tenderness. LABORATORY DATA: Review of her labs demonstrated white blood cell count of 15. Chemistry essentially unremarkable. CT scan of the abdomen and pelvis was reviewed with corresponding report. Evidence of cholelithiasis, without cholecystitis as well as an umbilical hernia within the sac. No other abnormalities. Evidence of obstruction, perforation/lymphedema or free fluid. Evidence of dilated loops of small intestine with inflammatory changes consistent with enteritis. Also, evidence of constipation. No other abnormalities. ASSESSMENT: A 28-year-old female with epigastric right upper quadrant abdominal pain. Evidence of enteritis and constipation. Cholelithiasis. No evidence of cholecystitis. PLANS AND RECOMMENDATIONS: I had a lengthy discussion with the patient given that the imaging studies do not support the diagnosis of acute cholecystitis, surgical intervention will not be considered at this time. The patient has multiple loops of intestine with enhancing wall and mesenteric injections in the epigastric region consistent with enteritis. Recommend IV antibiotic therapy, b.i.d. Protonix, may have clear liquid diet. May consider GI consultation for EGD. DVT and GI prophylaxis. Serial abdominal examination. Continue supportive care. Thank you for allowing me to participate in the care of your patient. I will follow her with you. MD JACQUELIN Silvestre/KENNY/JOURDAN TID: [id number] RECEIPT: [id number]
[2024-05-12 01:00] VITALS: BP 91/53; PULSE 74; RESP 19; TEMP 98.1; O2SAT 97
[2024-05-12 05:00] VITALS: BP 106/69; PULSE 80; RESP 19; TEMP 97.7; O2SAT 97
[2024-05-12 06:03] LABS: Basophils # (auto) 0.1 10 ^3/uL (0-0.2); Basophils % (auto) 0.8 % (0.0-2.0); Eosinophils # (auto) 0.2 10 ^3/uL (0-0.8); Eosinophils % (auto) 3.5 % (0.0-7.0); Hematocrit 36.8 % (36.0-46.0); Hemoglobin 12.8 g/dL (12.2-16.2); Lymphocytes # (auto) 2.4 10 ^3/uL (0.4-5.4); Lymphocytes % (auto) 34.7 % (10.0-50.0); Mean Corpuscular Hemoglobin 30.5 pg (28.0-32.0); Mean Corpuscular Hgb Conc. 34.7 g/dL (32.0-36.0); Mean Corpuscular Volume 87.9 fL (80.0-100.0); Monocytes # (auto) 0.4 10 ^3/uL (0-1.3); Monocytes % (auto) 6.5 % (0.0-12.0); Neutrophils # (auto) 3.7 10 ^3/uL (1.6-8.6); Neutrophils % (auto) 54.5 % (37.0-80.0); Platelet Count (auto) 208 10^3/uL (140-450); Red Blood Cells 4.19 10^6/uL (4.0-5.20); White Blood Cell 6.8 10^3/uL (4.4-10.8)
[2024-05-12 06:18] LABS: Alanine Aminotransferase 24 U/L (7-40); Alkaline Phosphatase 54 U/L (46-116); Anion Gap 8 (5-15); Calcium 9.6 mg/dL (8.7-10.4); Carbon Dioxide 25 mmol/L (20-31); Chloride 110 mmol/L (98-107); Glucose 106 mg/dL (74-106); Potassium 3.4 mmol/L (3.5-5.1); Sodium 143 mmol/L (136-145)
[2024-05-12 06:20] LABS: Albumin 3.8 g/dL (3.2-4.8); Aspartate Aminotransferase 9 U/L (13-40); Bilirubin, Total 0.9 mg/dL (0.2-1.0); Total Protein 6.2 g/dL (5.7-8.2)
[2024-05-12 06:46] LABS: BUN/Creatinine Ratio 7.4 (10.0-20.0); Blood Urea Nitrogen < 5 mg/dL (9-23)
--- NOTE | 2024-05-12 07:16 | DVHPN2 ---
Progress Note Date Seen: May 12, 2024 Has the PT tested + for MRSA If YES, has PT been informed?: No Medical Necessity Reason Pt with a Central, PICC or Fol: No Subjective Review of Systems Pt feels well. "Ready to go home to my children". Denied abdominal pain, nausea or vomiting. Tolerating CLD. Says she spit up yellow acid in the morning. Objective vital signs Vital Sign Date Time Temp Pulse Resp B/P (MAP) Pulse Ox O2 Delivery O2 Flow Rate FiO2 05/12/24 05:00 97.7 80 19 106/69 (81) 97 97.7 05/11/24 20:00 Room Air* 0 21 Total Intake and Output 05/11/24 05/11/24 05/12/24 15:00 23:00 07:00 Intake Total 200 ml 0 ml 300 ml Balance 200 ml 0 ml 300 ml medications Current Medications Medications Dose Ordered Sig/Mata Route Start Time Stop Time Status Last Admin Dose Admin Acetaminophen/ Hydrocodone Bitart 1 tab Q4HP PRN PO 05/11/24 06:15 Acetaminophen 650 mg Q6HP PRN PO 05/11/24 06:15 Nitroglycerin 0.4 mg Q5MINP PRN SL 05/11/24 06:30 Morphine Sulfate 2 mg Q30M PRN IV 05/11/24 06:30 Morphine Sulfate 2 mg Q2HP PRN IV 05/11/24 08:30 Pantoprazole Sodium 40 mg BID IV 05/11/24 10:00 05/11/24 22:03 40 MG Acetaminophen/ Hydrocodone Bitart 1 tab Q4HP PRN PO 05/11/24 08:30 Enoxaparin Sodium 40 mg DAILY SC 05/11/24 10:00 05/11/24 10:16 40 MG Ceftriaxone Sodium 50 ml @ 100 mls/hr DAILY@09 IV 05/12/24 09:00 Metronidazole 100 ml @ 100 mls/hr Q8HR IV 05/11/24 14:00 05/12/24 05:34 100 MLS/HR Ondansetron HCl 4 mg Q6HR IV 05/11/24 18:00 05/12/24 05:34 4 MG Prochlorperazine Edisylate 5 mg Q4HPRN PRN IV 05/11/24 13:45 Examination Anicteric sclerae, no evidence of jaundice. Abdomen soft, ND and NT. laboratory and microbiology Laboratory Tests 05/12/24 05:14 Test 05/12/24 05:14 Range/Units Serum Glucose 106 74-106 mg/dL Labs and/or images reviewed: Labs reviewed by me Problem List/Assessment/Plan Problems(with codes): (1) GERD (gastroesophageal reflux disease) (2) Abdominal pain (3) Cholelithiasis Problem List/Assessment/Plan Abdominal pain resolved. Possible Symptomatic cholelithiasis versus GERD/Gastritis. Responded to PPI. Advance diet. Recommended to Low fat diet. If tolerates, may discharge home from surgical standpoint on PPI. F/U with PCP and consider O/P EGD. Plan discussed with: Patient My Orders My Orders Orders - MIKE WOLFE MD Procedure Category Date Status Time Morphine Sulfate PHA 05/11/24 In Process Injection 08:30 Pantoprazole PHA 05/11/24 In Process (Protonix) 10:00 Hydrocodone-Acet PHA 05/11/24 In Process 10/325mg Tab ([place] 08:30 Enoxaparin Sodium PHA 05/11/24 In Process (Lovenox) 10:00 Regular Diet DIET 05/12/24 Verified Breakfast MIKE WOLFE MD May 12, 2024 07:16
[2024-05-12 08:48] VITALS: BP 102/65; PULSE 80; RESP 17; TEMP 97.8; O2SAT 95
[2024-05-12] MEDS: cefTRIAXone 1GM/50ML D5W 50 ML IV SCH (08:49)
[2024-05-12] MEDS ORDERED: METR-344 PO (09:11)
[2024-05-12] MEDS ORDERED: CIPR-173 PO (09:11)
[2024-05-12] MEDS ORDERED: FAMO20TA10 PO (09:11)
[2024-05-12] MEDS ORDERED: ZOFR4T PO (09:16)
--- NOTE | 2024-05-12 09:17 | DVHDS2 ---
Discharge Summary Date of Admission May 11, 2024 at 06:27 Date of Discharge: May 12, 2024 Labs/Diagnostic Data: Laboratory Results Test 05/12/24 05:14 05/11/24 02:23 05/11/24 02:17 White Blood Count 6.8 10^3/uL (4.4-10.8) Red Blood Count 4.19 10^6/uL (4.0-5.20) Hemoglobin 12.8 g/dL (12.2-16.2) Hematocrit 36.8 % (36.0-46.0) Mean Corpuscular Volume 87.9 fL (80.0-100.0) Mean Corpuscular Hemoglobin 30.5 pg (28.0-32.0) Mean Corpuscular Hemoglobin Concent 34.7 g/dL (32.0-36.0) Red Cell Distribution Width 13.0 % (11.8-14.3) Platelet Count 208 10^3/uL (140-450) Mean Platelet Volume 7.8 fL (6.9-10.8) Neutrophils (%) (Auto) 54.5 % (37.0-80.0) Lymphocytes (%) (Auto) 34.7 % (10.0-50.0) Monocytes (%) (Auto) 6.5 % (0.0-12.0) Eosinophils (%) (Auto) 3.5 % (0.0-7.0) Basophils (%) (Auto) 0.8 % (0.0-2.0) Neutrophils # (Auto) 3.7 10 ^3/uL (1.6-8.6) Lymphocytes # (Auto) 2.4 10 ^3/uL (0.4-5.4) Monocytes # (Auto) 0.4 10 ^3/uL (0-1.3) Eosinophils # (Auto) 0.2 10 ^3/uL (0-0.8) Basophils # (Auto) 0.1 10 ^3/uL (0-0.2) Nucleated Red Blood Cells 0.0 % Sodium Level 143 mmol/L (136-145) Potassium Level 3.4 mmol/L (3.5-5.1) Chloride Level 110 mmol/L (98-107) Carbon Dioxide Level 25 mmol/L (20-31) Anion Gap 8 (5-15) Blood Urea Nitrogen < 5 mg/dL (9-23) Creatinine 0.68 mg/dL (0.550-1.02) Glomerular Filtration Rate Calc 122 mL/min (>90) BUN/Creatinine Ratio 7.4 (10.0-20.0) Serum Glucose 106 mg/dL (74-106) Calcium Level 9.6 mg/dL (8.7-10.4) Total Bilirubin 0.9 mg/dL (0.2-1.0) Aspartate Amino Transferase (AST) 9 U/L (13-40) Alanine Aminotransferase (ALT) 24 U/L (7-40) Alkaline Phosphatase 54 U/L (46-116) Total Protein 6.2 g/dL (5.7-8.2) Albumin 3.8 g/dL (3.2-4.8) Urine Color Light-yellow (Yellow) Urine Clarity Clear (Clear) Urine pH 6.5 (5.0-9.0) Urine Specific [place] 1.014 (1.001-1.035) Urine Protein Negative (Negative) Urine Ketones Negative (Negative) Urine Blood Trace /uL (Negative) Urine Nitrite Negative (Negative) Urine Bilirubin Negative (Negative) Urine Urobilinogen Normal mg/dL (Negative) Urine Leukocyte Esterase Negative /uL (Negative) Urine RBC 3 /hpf (0 - 4) Urine WBC <1 /hpf (0 - 5) Urine Squamous Epithelial Cells Few /hpf (<5) Urine Bacteria None seen /hpf (None Seen) Urine Glucose Normal mg/dL (Normal) Lipase 49 U/L (12-53) Other Laboratory Tests 05/12/24 05:14 Brief Hx & Hospital Course: 28-year-old female with past medical history of kidney stones who presented to [facility] ED with complaint of acute abdominal pain for approximately 4 days duration. Patient reports symptoms progressively get worse with epigastric abdominal pain, described as sharp, cramping, constant, nonradiating, associated bout of nausea, vomiting, getting worse today that prompted this visit. In [place] patient had epigastrium pain radiating to right lower quadrant, CT abdomen pelvis done is negative for appendicitis but does show enteritis and significant nonobstructive cholelithiasis.. Patient is started on Zosyn but later deescalated to ceftriaxone and Flagyl. IV fluids given, scheduled Zofran, NPO status maintained. Surgery is consulted but no acute intervention indicated. Day 2 patient has significant improvement and nausea and abdominal pain/tenderness are resolved. Vital signs stable patient tolerating p.o., no nausea vomiting. Patient is stable for discharge with the plan below. diagnosis: enteritis, cholelithiasis, po intolerance due to unremitting nausea/vomiting discharge plan: - cipro 500mg 2x/day for 5 days - flagyl 500mg 3x/day for 5 days - pepcid 20mg 2x/day for 14 days - regular diet (or as tolerated) - zofran for nausea as needed - f/u with PCP as regular. - f/u with surgery outpatient to assess need for cholecystectomy - continue other home medications not mentioned above. Visitation and planning required 35 minutes Condition at Discharge: Fair Final Diagnosis/Problems List enteritis, cholelithiasis, po intolerance due to unremitting nausea/vomiting Discharge Disposition: Home Discharge Instruct/Medications Diet: Regular Activity: No Restrictions, As Tolerated Follow Up/Referral: PCP Medications: as below Discharge Statement: "Patient was advised to return to the ER or call 911 if any headaches, dizziness, shortness of breath, chest pain, abdominal pain, bleeding, fevers, or worsening of medical condition. Patient was counseled about treatment plan, medications, possible side effects, patientverbalized understanding. All questions were answered to the best of my ability. This discharge took greater then 30 minutes in planning, reviewing documentation, counseling the patient, and discussing with other team members." ASSESSMENT ASSESSMENT Assessment enteritis, cholelithiasis, po intolerance due to unremitting nausea/vomiting Date of Service: May 12, 2024 Billing Provider: MICHELLE VILLATORO MD Common Visit Codes: [id number] DISCH DAY >30min MICHELLE VILLATORO MD May 12, 2024 09:17
[2024-05-12] MEDS: INFLUENZA TRIVALENT 2024-2025 0.5 ML INJ IM ONE (10:28)
== END 2024-05-12 12:20 | disposition home or self-care (01) ==
LOC: ER 01:48 → TELE 06:27 → OVERFLOW 06:40 → CENTRAL 17:04
PROVIDERS: ADMIT Nurse Practitioner Family; ATTEND Student in an Organized Health Care Education/Training Program
DX: K80.20 Calculus of gallbladder without cholecystitis without obstruction (principal); A04.9 Bacterial intestinal infection, unspecified; K21.9 Gastro-esophageal reflux disease without esophagitis; K59.00 Constipation, unspecified; Z87.442 Personal history of urinary calculi; Z79.899 Other long term (current) drug therapy
CPT/HCPCS: 36415; 74177; 80053; 81001; 83690; 85025; 90656; 96365; 96366; 96367; 96375; 96376; G0378; J2405; J2470; J2543; J3490